=== PATIENT | female | born 2000 | race Caucasian/White ===

== ENCOUNTER 2024-12-19 10:21 | Emergency (ER) | payer OTHER, BC, SELFPAY ==
[2024-12-19 10:25] VITALS: BP 120/79
[2024-12-19 12:06] LABS: % Basophils 0.7 % (0-2); % Eosinophils 0.7 % (0-6); % Immature Granulocytes 0.2 % (0-0.5); % Lymphocytes 35.4 % (20.5-51.1); % Monocytes 11.8 % (1.7-9.3); % Neutrophils 51.2 % (42.2-75.2); Absolute Lymphocytes 1.6 10^3/uL (1.2-3.4); Absolute Monocytes 0.5 10^3/uL (0.1-0.6); Absolute Neutrophils 2.3 10^3/uL (1.4-6.5); Hematocrit 35.1 % (37.0-47.0); Hemoglobin 11.9 g/dL (12.0-16.0); Mean Corp Hgb Conc. 33.9 g/dL (33.0-37.0); Mean Corpuscular Hgb 28.4 pg (27.0-31.0); Mean Corpuscular Volume 83.8 fL (81.0-99.0); Mean Platelet Volume 10.5 fL (7.4-10.4); Nucleated Red Blood Cells % 0 %; Platelet Count 231 10^3/uL (130-400); Red Blood Cell Count 4.19 10^6/uL (4.20-5.40); Red Cell Dist. Width 13.2 % (11.5-14.5); White Blood Cell Count 4.6 10^3/uL (4.8-10.8)
--- NOTE | 2024-12-19 12:19 | ED.GENMED ---
History of Present Illness
<Lily Mendoza DO - Last Filed: 12/19/24 15:17>
General
Chief Complaint: Abdominal Pain
Time Seen by Provider: 12/19/24 11:27
History of Present Illness
History of Present Illness:
24-year-old female without significant past medical history presenting for abdominal pain. Patient reports symptoms since yesterday. Patient reports the pain is primarily on the left side. Does note some constipation. Went to urgent care today,
advised to come to the hospital. Pain has been constant. Denies any abdominal surgeries. LMP was 2 weeks ago. Denies any urinary complaints. Denies any fever. Denies chest pain or difficulty breathing. Denies ever having this issue in the
past. Denies additional acute medical complaints
Phy Exam
<Lily Mendoza DO - Last Filed: 12/19/24 15:17>
Physical Exam
Physical Exam:
General: Well-appearing, no clinical signs of dehydration, nontoxic and in no acute distress
HEENT: protecting airway
Neck: appears supple
CV: Normal heart rate, regular rhythm
Resp: No accessory muscle use, no increased work of breathing, lungs clear to auscultation bilaterally
Abd: Soft and non-distended, generalized tenderness, left greater than right, no rebound or guarding
Extremities: No deformities, no swelling
Neuro: alert, no focal neurologic deficit
: deferred
Rectal: deferred
Psych: Normal affect
Skin: Intact
Course
<Lily Mendoza DO - Last Filed: 12/19/24 15:17>
Orders/Labs/Results
Orders:
Orders
12/19/24 11:57
Complete Blood Count/With Diff Urgent
Comprehensive Metabolic Panel Urgent
HCG, Serum Qualitative Screen Urgent
Comment: ADD ON
Lipase Urgent
Urinalysis Reflex To Culture Urgent
Date Specimen was Collected: 12/19/24
Time Specimen was Collected: 11:47
Urine Microscopic Reflex Cult Urgent
Urine Culture Urgent
SANJANA Source: U
Specimen Description:
Date Specimen was Collected: 12/19/24
Time Specimen was Collected: 11:47
12/19/24 11:59
CT Abd/pelvis W Iv Cont Urgent
Comment:
Reason For Exam: L-sided pain
Ketorolac [Toradol] 15 mg IV NOW STA
Test Result ONCE
12/19/24 12:00
Add On- LAB Urgent
Tests Added?: HCG, qulatative
12/19/24 15:16
US Pelvis Only (non-obstetric) Urgent
Comment:
Reason For Exam: L-sided pain, ovarian cyst
Abnormal Lab Results
12/19/24
11:57
WBC 4.6 L 10^3/uL
(4.8-10.8)
RBC 4.19 L 10^6/uL
(4.20-5.40)
Hgb 11.9 L g/dL
(12.0-16.0)
Hct 35.1 L %
(37.0-47.0)
MPV 10.5 H fL
(7.4-10.4)
Monocytes % 11.8 H %
(1.7-9.3)
Creatinine 0.5 L mg/dL
(0.6-1.0)
Urine Ketones 1+ A
(Negative)
Urine Bacteria (Reflex) Many A
(Negative)
Urine Albumin (Reflex) 2+ A
(Neg - Trace)
12/19/24 11:57
12/19/24 11:57
Vital Signs
Initial and Last Documented VS:
Initial Vital Signs
Temp Pulse Resp BP Pulse Ox
98.3 F 98 16 120/79 100
12/19/24 10:25 12/19/24 10:25 12/19/24 10:25 12/19/24 10:25 12/19/24 10:25
Last Documented Vital Signs
Temp Pulse Resp BP Pulse Ox
98.3 F 98 16 111/83 100
12/19/24 10:25 12/19/24 10:25 12/19/24 10:25 12/19/24 12:31 12/19/24 12:31
<Leona Armas MD - Last Filed: 12/19/24 18:21>
Orders/Labs/Results
Orders:
Orders
12/19/24 11:57
Complete Blood Count/With Diff Urgent
Comprehensive Metabolic Panel Urgent
HCG, Serum Qualitative Screen Urgent
Comment: ADD ON
Lipase Urgent
Urinalysis Reflex To Culture Urgent
Date Specimen was Collected: 12/19/24
Time Specimen was Collected: 11:47
Urine Microscopic Reflex Cult Urgent
Urine Culture Urgent
SANJANA Source: U
Specimen Description:
Date Specimen was Collected: 12/19/24
Time Specimen was Collected: 11:47
12/19/24 11:59
CT Abd/pelvis W Iv Cont Urgent
Comment:
Reason For Exam: L-sided pain
Ketorolac [Toradol] 15 mg IV NOW STA
Test Result ONCE
12/19/24 12:00
Add On- LAB Urgent
Tests Added?: HCG, qulatative
12/19/24 15:16
US Pelvis Only (non-obstetric) Urgent
Comment:
Reason For Exam: L-sided pain, ovarian cyst
Abnormal Lab Results
12/19/24
11:57
WBC 4.6 L 10^3/uL
(4.8-10.8)
RBC 4.19 L 10^6/uL
(4.20-5.40)
Hgb 11.9 L g/dL
(12.0-16.0)
Hct 35.1 L %
(37.0-47.0)
MPV 10.5 H fL
(7.4-10.4)
Monocytes % 11.8 H %
(1.7-9.3)
Creatinine 0.5 L mg/dL
(0.6-1.0)
Urine Ketones 1+ A
(Negative)
Urine Bacteria (Reflex) Many A
(Negative)
Urine Albumin (Reflex) 2+ A
(Neg - Trace)
12/19/24 11:57
12/19/24 11:57
Vital Signs
Initial and Last Documented VS:
Initial Vital Signs
Temp Pulse Resp BP Pulse Ox
98.3 F 98 16 120/79 100
12/19/24 10:25 12/19/24 10:25 12/19/24 10:25 12/19/24 10:25 12/19/24 10:25
Last Documented Vital Signs
Temp Pulse Resp BP Pulse Ox
98.3 F 98 16 111/83 100
12/19/24 10:25 12/19/24 10:25 12/19/24 10:25 12/19/24 12:31 12/19/24 12:31
<Lily Mendoza DO - Last Filed: 12/19/24 15:17>
MDM/Problems Addressed
MDM/Problems Addressed:
24-year-old female presenting for abdominal pain. Vital signs are normal.
On exam patient is resting comfortably, no acute distress or discomfort. Generalized tenderness to the abdomen, left greater than right, also epigastric pain. Differential considerations include gastritis versus GERD versus diverticulitis.
Ovarian pathology is a consideration, however less likely, pain is diffuse in nature. No focal tenderness to the right lower quadrant with lower suspicion for acute appendicitis. Plan for laboratory analysis, urinalysis, CT abdominal imaging.
Toradol administered for pain.
15:15 -CT shows a left ovarian cyst. Possible rupture with free fluid. Will obtain ultrasound for further evaluation of the
<Lily Mendoza DO - Last Filed: 12/19/24 15:17>
*Critical Care Note
Total Time (30-74mins, 75-104mins- exclusive of procedures): Not Applicable
<Leona Armas MD - Last Filed: 12/19/24 18:21>
*Radiology
Radiology exam reviewed: radiology read reviewed
<Leona Armas MD - Last Filed: 12/19/24 18:21>
Update Note
Update Note:
6:20 PM patient looks well and comfortable. Ultrasound confirms good ovarian blood flow. Patient given copy of ultrasound report to follow with her PCP and stone setter apprentice
ED Attending Note
<Lily Mendoza DO - Last Filed: 12/19/24 15:17>
-
Portions of this chart may have been created with voice recognition software.� Occasional wrong word or��sound alike� substitutions may have occurred due to the inherent limitations of voice recognition software.
Discharge Plan
Departure
Patient Disposition: Home (Routine Discharge)
Date of Disposition: 12/19/24
Time of Disposition: 18:19
Patient with high blood pressure during this ER visit?: No
Condition: Good
Discharge Problem:
Ovarian cyst
Instructions: Ovarian Cyst (DC)
Prescriptions:
No Action
fluoxetine 10 MG capsule
10 mg PO HS
Biotin
2 tab PO DAILY
Referrals:
NONE,* [Family Provider] -
Activity Restrictions/Additional Instructions:
You were seen in the emergency department for abdominal pain
You were found to have a left ovarian cyst. We suspect this to be the source of your pain. Please take Tylenol or Motrin as needed for pain and follow-up with your stone setter apprentice.
Please follow-up closely with your primary care physician.
It is recommended that you get a follow-up pelvic ultrasound in 2 to 3 months to make sure that this cyst on the ovary goes away
Return to the emergency department for any worsening of your symptoms, or any development of chest pain, difficulty breathing, abdominal pain with persistent vomiting and inability to tolerate food or liquid by mouth (concern for dehydration),
weakness, headache or confusion, fever greater than 100.4, or any additional symptoms that are concerning to you.
Thank you for choosing [facility].
Interventions
Interventions:
*Risk Screen - Suicide Last Done: 12/19/24 10:27
*Neglect/Abuse Screening Last Done: 12/19/24 10:27
TJ-Ahiyyb-Qeekllbrkl Assessment Last Done: 12/19/24 12:43
Discharge Date and Time
Print Language: MONGOLIAN
[2024-12-19] MEDS: TORADOL 15 MG IV (12:28)
[2024-12-19 12:30] LABS: ALT (SGPT) 15 U/L (0-35); AST (SGOT) 33 U/L (14-36); Albumin 4.1 g/dl (3.5-5.0); Alkaline Phosphatase 41 U/L (38-126); Blood Urea Nitrogen 15 mg/dl (7-17); Calcium 9.5 mg/dl (8.4-10.2); Carbon Dioxide 25 mmol/L (22-30); Chloride 107 mmol/L (98-107); Glucose 87 mg/dl (70-99); Lipase 72 U/L (23-300); Potassium 4.2 mmol/L (3.5-5.1); Sodium 141 mmol/L (135-145); Total Bilirubin 0.5 mg/dl (0.2-1.3); Total Protein 6.4 g/dl (6.3-8.2); eGFR > 60.00
[2024-12-19 12:31] VITALS: BP 111/83
[2024-12-19 13:43] LABS: HCG, Serum Qualitative Screen Negative
[2024-12-19 16:55] LABS: Urine Albumin 2+ (Neg - Trace); Urine Bilirubin Negative (Negative); Urine Character Cloudy (Clear); Urine Color Yellow; Urine Glucose Negative (Negative); Urine Ketone 1+ (Negative); Urine Leukocyte Negative (Negative); Urine Nitrite Negative (Negative); Urine Occult Blood Negative (Negative); Urine Urobilinogen Negative (Neg - 1+)
[2024-12-19 17:11] LABS: Urine Squamous Cell 0-2 /LPF (Few)
[2024-12-19 17:12] LABS: Urine Bacteria Many (Negative); Urine Red Blood Cell 0-2 /HPF (0-2); Urine White Cell 0-2 /HPF (0-5)
[2024-12-19 17:13] LABS: Urine Amorphous Seen
== END 2024-12-19 19:20 | disposition home or self-care (01) ==
LOC: EMR 10:21
PROVIDERS: EMERGENCY PHYSICIAN Student in an Organized Health Care Education/Training Program
DX: N83.202 Unspecified ovarian cyst, left side (principal); K59.00 Constipation, unspecified
CPT/HCPCS: 99284; 96374; 74177; 76856; 80053; 81003; 81015; 83690; 84703; 85025; 87077; 87086; Q9967